=== PATIENT | male | born 1965 ===

== ENCOUNTER 2019-08-26 14:42 | Outpatient (CLI) | payer OTHER, SELFPAY ==
--- NOTE | ~2019-08-26 | CT_ITS ---
EXAMINATION: CT abdomen pelvis w con DATE: 08/26/2019 15:21 INDICATION: Abnormal weight loss TECHNIQUE: Computed tomography (CT) of the abdomen and pelvis was performed with 100 cc Omnipaque 350 intravenous contrast. Automated exposure control and iterative reconstruction technique were employe d. Exam dose: 263.72 mGy-cm total exam DLP. COMPARISON: None. FINDINGS: The lower lung zones are clear. Normal heart size. No pericardial or pleural effusion. The liver, gallbladder, bile ducts, spleen, pancreas, pancreatic duct, and adrenal glands are unremar kable. 6 x 6.4 x 6.5 mm upper pole left renal nonobstructing calculus with attenuation of [address]. One or more small punctate calculi cannot be excluded in either kidney; noncontrast CT abdomen pelvis with more sensitive for detection of urinary tract calculi. No ureteral calculus or hydroureteronephrosis. Prominent focal prostate gland calcification. The urinary bladder is unremarkable. Normal appendix. There is a focal area of soft tissue thickening of the sigmoid colon; colon workup b y means of barium enema or colonoscopy is recommended as a precaution. No bowel obstruction or intrap eritoneal free air. Normal caliber of the abdominal aorta. No intraperitoneal or retroperitoneal or pelvic mass lesion or adenopathy or ascites. Small fat-containing inguinal hernias, left larger than right. Included skeletal structures are unremarkable; no suspicious osteolytic or osteoblastic lesions are n oted. IMPRESSION: Focal area of soft tissue thickening of the wall of sigmoid colon is suggested; recommen d colon workup by means of barium enema or colonoscopy Nonobstructing upper pole left renal calculus Dr. Servin telephoned the report, including recommendation for colon evaluation by means of barium enem a or colonoscopy to Dr. Epps on 08/27/2019 at 0756 hours. Reviewed, dictated and finalized at [facility]. Reviewed, dictated and finalized at [facility]. IMPRESSION: Focal area of soft tissue thickening of the wall of sigmoid colon is suggested; recommend colon workup by means of barium enema or colonoscopy Nonobstructing upper pole left renal calculus Dr. Servin telephoned the report, including recommendation for colon evaluation b y means of barium enema or colonoscopy to Dr. Epps on 08/27/2019 at 0756 hours.
== END 2019-08-26 14:43 | disposition home or self-care (01) ==
PROVIDERS: PCP Emergency Medicine; Visit Provider Emergency Medicine
DX: R63.4 Abnormal weight loss (principal); N20.0 Calculus of kidney; R93.3 Abnormal findings on diagnostic imaging of other parts of digestive tract
CPT/HCPCS: 74177; Q9967